=== PATIENT | female | born 1955 | race Two or more races ===

== ENCOUNTER 2019-08-18 10:13 | Outpatient (CLI) | payer OTHER | END 2019-08-18 11:50 | disposition home or self-care (01) | LOC: NUCLEAR 10:13 | DX: C50.411 Malignant neoplasm of upper-outer quadrant of right female breast (principal); M81.0 Age-related osteoporosis without current pathological fracture ==

== ENCOUNTER → 2019-08-18 | Outpatient (CLI) | payer OTHER | END | disposition home or self-care (01) | LOC: RAD 12:01 | DX: C50.411 Malignant neoplasm of upper-outer quadrant of right female breast (principal); Z90.11 Acquired absence of right breast and nipple; R07.1 Chest pain on breathing; R07.81 Pleurodynia ==

== ENCOUNTER 2019-08-25 07:58 | Outpatient (CLI) | payer OTHER | END 2019-08-25 08:35 | disposition home or self-care (01) | LOC: NUCLEAR 07:58 | DX: C50.411 Malignant neoplasm of upper-outer quadrant of right female breast (principal); Z90.11 Acquired absence of right breast and nipple | CPT/HCPCS: 78306; A9503 ==

== ENCOUNTER 2019-08-28 08:55 | Outpatient (CLI) | payer OTHER | END 2019-08-28 09:06 | disposition home or self-care (01) | LOC: SONOGRAMA 08:55 | DX: C50.411 Malignant neoplasm of upper-outer quadrant of right female breast (principal); Z90.11 Acquired absence of right breast and nipple ==